=== PATIENT | female | born 1970 | race Caucasian/White ===

== ENCOUNTER 2018-01-01 12:21 | Emergency (ER) | payer OTHER ==
[~2018-01-01] VITALS: Ht 177.8 cm; Wt 100.2 kg
[2018-01-01] MEDS ORDERED: SODIUM CHLORIDE 0.9% 1000ML 1,000 ML IV STA (12:32)
[2018-01-01] MEDS ORDERED: ONDANSETRON HCL INJ 2 MG/ML VIAL IV STA (12:32)
[2018-01-01] MEDS ORDERED: MORPHINE SULFATE 4 MG/ML SYR IV STA (12:32)
[2018-01-01] MEDS ORDERED: LIDOCAINE VISC 2% SOLN 15 ML UDC PO ONE (12:45)
[2018-01-01] MEDS ORDERED: MAGNESIUM/ALUMINUM/SIMETHICONE 30 ML UDC PO ONE (12:45)
[2018-01-01] MEDS ORDERED: BELLADONNA ALK/PHENOBARBITAL 5 ML UDC PO ONE (13:00)
[2018-01-01] MEDS ORDERED: DIATRIZOATE MEGL/DIATRIZOA SOD 30 ML BTL PO ONE (13:11)
[2018-01-01] MEDS ORDERED: MORPHINE SULFATE 2 MG/ML SYR ONE (13:30)
[2018-01-01 13:37] LABS: BASOPHILS % 0.4 % (0.0-1.0); EOSINOPHILS % 0.1 % (0.0-6.0); HEMATOCRIT 36.7 % (34.2-44.1); LYMPHOCYTES # (AUTO) 0.7 (1.0-3.2); LYMPHOCYTES % 8.2 % (18.0-39.1); MEAN CORPUSCULAR HEMOGLOBIN 27.1 pg (28-32); MEAN CORPUSCULAR HGB CONC 32.7 g/dL (31-35); MONOCYTES # (AUTO) 0.2 (0.2-0.8); MONOCYTES % 2.4 % (4.4-11.3); NEUTROPHILS % 88.6 % (38.7-80.0); PLATELET COUNT 259 x10e3/uL (140-360); RED BLOOD COUNT 4.42 x10e6/uL (3.6-5.1); RED CELL DISTRIBUTION WIDTH 14.3 % (11.7-14.4)
[2018-01-01 13:43] LABS: BILIRUBIN,URINE NEGATIVE (NEGATIVE); KETONES,URINE NEGATIVE (NEGATIVE); LEUKOCYTE ESTERASE ,URINE TRACE (NEGATIVE); NITRITE,URINE NEGATIVE (NEGATIVE); PROTEIN,URINE DIPSTICK NEGATIVE (NEGATIVE); URINE UROBILINOGEN 0.2 mg/dL (0.2 - 1)
[2018-01-01 13:44] LABS: CLARITY,URINE HAZY (CLEAR); COLOR,URINE YELLOW (YELLOW)
[2018-01-01 13:51] LABS: INR 1.05; PROTHROMBIN TIME 12.9 seconds (11.9-14.5)
[2018-01-01 13:52] LABS: PARTIAL THROMBOPLASTIN TIME 26.6 seconds (23.8-35.5)
[2018-01-01 13:55] LABS: AMORPHOUS SEDIMENT,URINE FEW (FEW); BACTERIA,URINE FEW /HPF; EPITHELIAL CELLS,URINE MODERATE /LPF
[2018-01-01 13:56] LABS: MUCUS,URINE FEW (RARE)
[2018-01-01 14:03] LABS: ALANINE AMINOTRANSFERASE 129 IU/L (0-55); ALBUMIN 3.7 g/dL (3.5-5.0); ALKALINE PHOSPHATASE 73 IU/L (40-150); AMYLASE 43 U/L (25-125); ANION GAP 13.7 mmol/L (8-16); BLOOD UREA NITROGEN 9 mg/dL (7-26); BUN/CREATININE RATIO 12 (6-25); CALCIUM 8.9 mg/dL (8.4-10.2); CARBON DIOXIDE 20 mmol/L (22-29); CHLORIDE 107 mmol/L (98-107); CREATINE KINASE 16 IU/L (29-168); CREATININE, SERUM 0.76 mg/dL (0.57-1.11); EST GLOMERULAR FILTRATION RATE > 60 ML/MIN (60-); GLUCOSE 176 mg/dL (74-118); LIPASE 53 U/L (8-78); POTASSIUM 3.7 mmol/L (3.5-5.1); SODIUM 137 mmol/L (136-145)
--- NOTE | 2018-01-01 14:14 | Diagnostic Imaging Report ---
EXAM: Right Upper Quadrant Ultrasound INDICATION: \S\ABD PAIN \[id number] \S\1331 \S\Y COMPARISON: Abdominal CT 06/13/2016 TECHNIQUE: Transverse and longitudinal images of the right upper abdomen were obtained. FINDINGS: Liver: Size: 13.6 cm in the right midclavicular line, normal Appearance: Increased echogenicity, smooth contour Mass: No focal masses Gallbladder: Stones/Sludge: None Wall: 0.2 cm Appearance: No pericholecystic fluid or hydrops. Sonographic Wolf's Sign: Negative Bile Ducts: Intrahepatic Ducts: No dilatation Extrahepatic Ducts: Common bile duct measures 0.2 cm, no dilatation Pancreas: Incompletely visualized due to overlying bowel gas, but no abnormality identified involving the visualized portions of the pancreas. Right Kidney: Size: 10.6 cm Echogenicity: Normal Parenchymal thickness: Normal Collecting system: No hydronephrosis Stones: None Cyst/Mass: None Vessels: Aorta: Visualized portions are normal Inferior Vena Cava: Visualized portions are normal Main Portal Vein: 0.9 cm, normal size with hepatopetal flow. Free Fluid: No ascites or pleural effusion IMPRESSION: Hepatic steatosis. Otherwise, unremarkable right upper quadrant ultrasound. Signed by: DR. Wilner Valles MD on 01/01/2018 2:11 PM
--- NOTE | 2018-01-01 16:33 | Diagnostic Imaging Report ---
EXAMINATION: CHEST SINGLE (PORTABLE) INDICATION: \S\ERMD ORDER \[id number] \S\1530 \S\Y COMPARISON: None FINDINGS: AP view TUBES and LINES: None. LUNGS: Lungs are well inflated. Lungs are clear. There is no evidence of pneumonia or pulmonary edema. PLEURA: No pleural effusion or pneumothorax. HEART AND MEDIASTINUM: The cardiomediastinal silhouette is unremarkable. BONES AND SOFT TISSUES: No acute osseous lesion. Soft tissues are unremarkable. UPPER ABDOMEN: No free air under the diaphragm. IMPRESSION: No acute thoracic abnormality. Signed by: DR. Wilner Valles MD on 01/01/2018 4:30 PM
--- NOTE | 2018-01-01 16:55 | Diagnostic Imaging Report ---
EXAM: CT Abdomen and Pelvis WITH contrast INDICATION: \S\r/o gb stone ? appy ? divertic? pancreatitis? etc \[id number] \S\[id number] COMPARISON: None. TECHNIQUE: Abdomen and pelvis were scanned utilizing a multidetector helical scanner from the lung base to the pubic symphysis after administration of IV contrast. Coronal and sagittal reformations were obtained. Routine protocol was performed. Scan was performed when during portal venous phase. IV CONTRAST: 150 mL of Omnipaque 300 ORAL CONTRAST: Water COMPLICATIONS: None RADIATION DOSE: Total DLP: 783.4 mGy*cm Estimated effective dose: (DLP x 0.015 x size factor) mSv CTDIvol has been reviewed. It is below the limits set by the Radiation Protocol Committee (RPC). FINDINGS: LOWER THORAX:Bilateral breast implants. Otherwise unremarkable. HEPATOBILIARY: No focal hepatic lesions. No intra-or extrahepatic biliary ductal dilation. Tiny calcified gallstone (coronal image 36). SPLEEN: Small splenule in the hilum. No splenomegaly. PANCREAS: No focal masses or ductal dilatation. ADRENALS: No adrenal nodules. KIDNEYS/URETERS: Stable mild bilateral pelviectasis. No calculus, or solid mass lesion. PELVIC ORGANS/BLADDER: Urinary bladder is unremarkable. Uterus is unremarkable. No adnexal masses. PERITONEUM/RETROPERITONEUM: No free air or free fluid. LYMPH NODES: No pelvic sidewall, retroperitoneal, or mesenteric lymphadenopathy. VESSELS: Unremarkable. GI TRACT: No evidence of bowel obstruction or suspicious bowel wall thickening. Interval appendectomy since 06/13/2016. BONES AND SOFT TISSUE: No osseous destructive lesions. Dystrophic soft tissue calcification in the right gluteal region may relate to prior trauma. Degenerative changes of the spine. No soft tissue abnormalities. IMPRESSION: 1. No acute abnormalities in the abdomen and pelvis. 2. Cholelithiasis without CT evidence of acute cholecystitis. Signed by: DR. Wilner Valles MD on 01/01/2018 4:52 PM
[2018-01-01 17:56] VITALS: BP 120/72
[2018-01-01] MEDS ORDERED: SODIUM CHLORIDE 0.9% 50ML 50 ML ONE (18:33)
[2018-01-01] MEDS ORDERED: IOPAMIDOL 370 MG/ML 200 ML INFUS..BTL INJ ONE (18:33)
== END 2018-01-01 17:56 | disposition home or self-care (01) ==
LOC: ER 12:21
DX: R10.13 Epigastric pain (principal); K80.11 Calculus of gallbladder with chronic cholecystitis with obstruction; N39.0 Urinary tract infection, site not specified
CPT/HCPCS: 36415; 71045; 74177; 76705; 80053; 81001; 82150; 82550; 82553; 83690; 84484; 84702; 85025; 85610; 85730; 87086; 93005; 96360; 96374; 99284; J2270; J2405; J7030; Q9967